=== PATIENT | female | born 1985 | race African-American/Black ===

== ENCOUNTER 2017-07-12 14:53 | Emergency (ER) | payer SELFPAY ==
[2017-07-12] MEDS ORDERED: Labetalol HCl 100 MG/20 ML VIAL ONE (15:03)
[2017-07-12] MEDS ORDERED: hydrALAZINE 20 MG/ML VIAL ONE (15:56)
[2017-07-12 15:57] LABS: #Lymphocytes 1.3 thou/uL (1.20-3.40); #Monocytes 0.6 thou/uL (0.11-0.59); #Neutrophils 7.3 thou/uL (1.40-6.50); %Basophils 0.5 % (0.0-1.0); %Eosinophils 0.3 % (0.0-10.0); %Lymphocytes 13.8 % (21.0-51.0); %Neutrophils 79.5 % (42.0-75.0); Hemoglobin 13.8 g/dL (12.0-16.0); Mean Corpuscular HGB CONC 34.3 g/dL (32.0-36.0); Mean Corpuscular Hemoglobin 30.2 pg (27.0-31.0); Mean Platelet Volume 6.9 fL (7.4-10.4); Platelet Count 300 thou/uL (130-400); RBC Distribution Width 12.3 % (11.5-14.5); Red Blood Cell (RBC) Count 4.56 mill/uL (4.20-5.40); White Blood Cell (WBC) Count 9.2 thou/uL (4.8-10.8)
[2017-07-12 16:05] LABS: Prothrombin Time 13.2 SEC (12.0-14.7)
[2017-07-12] MEDS ORDERED: Morphine 10 MG/ML VIAL ONE (16:11)
[2017-07-12 16:20] LABS: ALT (SGPT) 21 U/L (8-55); AST (SGOT) 19 U/L (5-34); Albumin 4.4 g/dL (3.5-5.0); Alkaline Phosphatase 97 U/L (40-150); Anion Gap 13 mmol/L (10-20); BUN (Urea Nitrogen) 13 mg/dL (7.0-18.7); Bilirubin, Total 0.3 mg/dL (0.2-1.2); Calc. Creatinine Clearance 0 mL/min (70-130); Calcium 9.2 mg/dL (7.8-10.44); Carbon Dioxide 21 mmol/L (22-29); Chloride 110 mmol/L (98-107); Estimated GFR-MDRD Greater than 90; Glucose 107 mg/dL (70-105); Potassium 3.5 mmol/L (3.5-5.1); Protein, Total 7.4 g/dL (6.0-8.3); Sodium 140 mmol/L (136-145)
== END 2017-07-12 17:12 | disposition home or self-care (01) ==
LOC: ERS 14:53
DX: K91.840 Postprocedural hemorrhage of a digestive system organ or structure following a digestive system procedure (principal); I10 Essential (primary) hypertension; Z71.6 Tobacco abuse counseling
CPT/HCPCS: 36415; 80053; 85025; 85610; 85730; 96374; 96375; 99406; J0360; J2270

== ENCOUNTER 2017-09-07 05:51 | Emergency (ER) | payer SELFPAY ==
[2017-09-07 06:52] LABS: #Basophils 0.1 thou/uL (0.0-0.2); #Eosinphils 0.2 thou/uL (0.0-0.7); #Lymphocytes 3.7 thou/uL (1.20-3.40); #Monocytes 0.5 thou/uL (0.11-0.59); #Neutrophils 3.1 thou/uL (1.40-6.50); %Basophils 0.7 % (0.0-1.0); %Eosinophils 2.3 % (0.0-10.0); %Lymphocytes 49.1 % (21.0-51.0); %Neutrophils 40.9 % (42.0-75.0); Hemoglobin 12.8 g/dL (12.0-16.0); Mean Corpuscular Hemoglobin 29.9 pg (27.0-31.0); Mean Corpuscular Volume 87.8 fL (78.0-98.0); Mean Platelet Volume 7.3 fL (7.4-10.4); Platelet Count 308 thou/uL (130-400); Red Blood Cell (RBC) Count 4.28 mill/uL (4.20-5.40); White Blood Cell (WBC) Count 7.5 thou/uL (4.8-10.8)
[2017-09-07 07:14] LABS: ALT (SGPT) 18 U/L (8-55); AST (SGOT) 17 U/L (5-34); Albumin 4.8 g/dL (3.5-5.0); Alkaline Phosphatase 123 U/L (40-150); Anion Gap 12 mmol/L (10-20); BUN (Urea Nitrogen) 13 mg/dL (7.0-18.7); Bilirubin, Total 0.3 mg/dL (0.2-1.2); Calc. Creatinine Clearance 0 mL/min (70-130); Calcium 9.8 mg/dL (7.8-10.44); Carbon Dioxide 26 mmol/L (22-29); Chloride 108 mmol/L (98-107); Estimated GFR-MDRD 88; Globulin 3.3 g/dL (2.4-3.5); Glucose 93 mg/dL (70-105); Potassium 3.6 mmol/L (3.5-5.1); Protein, Total 8.1 g/dL (6.0-8.3); Sodium 142 mmol/L (136-145)
[2017-09-07 07:22] LABS: Pregnancy Test - Urine (BHCG) Negative (Negative)
[2017-09-07 07:24] LABS: Pregu Control Background? CLEAR/WHITE (CLR/WHITE); Pregu Control Bar Appear? YES (CONTROL BAR); Specific Gravity 1.026 (1.002-1.036)
[2017-09-07] MEDS ORDERED: diphenhydrAMINE 50 MG/ML VIAL ONE (07:37)
[2017-09-07] MEDS ORDERED: Metoclopramide HCl 10 MG/2 ML VIAL ONE (07:37)
[2017-09-07] MEDS ORDERED: Acetaminophen 500 MG TAB ONE (07:37)
--- NOTE | 2017-09-07 09:04 | CT ---
FINAL REPORT BRAIN CT WITHOUT IV CONTRAST: HISTORY: A 32-year-old female with a history of headache which began at 2:00 a.m., the worst headache she has ever had. Tingling in the right arm. History of migraines. COMPARISON: 10/02/16. FINDINGS: No focal mass or midline shift. No intra- or extraaxial hemorrhage. Sinuses and mastoids are clear. IMPRESSION: No acute intracranial process. No mass or bleed. POS: OFF
[2017-09-07] MEDS ORDERED: Ondansetron ODT 4 MG TAB ONE (09:38)
== END 2017-09-07 09:54 | disposition home or self-care (01) ==
LOC: ERS 05:51
DX: G43.909 Migraine, unspecified, not intractable, without status migrainosus (principal); F17.200 Nicotine dependence, unspecified, uncomplicated
CPT/HCPCS: 70450; 80053; 81025; 85025; 96361; 96374; 96375; J1200; J2765; Q0162

== ENCOUNTER 2018-01-07 20:27 | Observation (INO) | payer SELFPAY ==
[2018-01-07] MEDS ORDERED: Albuterol Sulfate 2.5 mg/3 ml Neb ONE ×2 (21:47→23:33)
--- NOTE | 2018-01-07 21:53 | RAD ---
FRONTAL RADIOGRAPH CHEST: 01/07/2018 HISTORY: Pleuritic chest pain and cough. COMPARISON: None. FINDINGS: The lungs are clear. The heart and mediastinal contour is unremarkable. IMPRESSION: No acute findings. POS: [facility]
[2018-01-07 21:57] LABS: Actual Bicarbonate (HCO3a) 23.4 mEq/L (22-28); Analyzer IN Cardio ER; Base Excess (BEa) 0.4 mEq/L (-2.0 to +3.0); CO2 Tension 32.4 mmHg (35.0-45.0); Calcium, Ionized 1.19 mmol/L (1.12-1.30); Carboxyhemoglobin (COHb) 0.3 gm% (0.0-3.0); Hemoglobin (Hb) 12.8 g/dL (12.0-16.0); O2 Tension (PaO2) 112.8 mmHg (80.0-100.0); Potassium - ABG Lab 3.33 mmol/L (3.70-5.30); pH, Arterial 7.48 (7.35-7.45)
[2018-01-07 21:59] LABS: Puncture Site RRA
[2018-01-07 21:59] LABS: #Basophils 0.1 thou/uL (0.0-0.2); #Eosinphils 0.2 thou/uL (0.0-0.7); #Lymphocytes 2.3 thou/uL (1.20-3.40); #Monocytes 0.6 thou/uL (0.11-0.59); #Neutrophils 4.3 thou/uL (1.40-6.50); %Basophils 0.8 % (0.0-1.0); %Eosinophils 3.2 % (0.0-10.0); %Lymphocytes 30.4 % (21.0-51.0); %Monocytes 7.9 % (0.0-10.0); %Neutrophils 57.8 % (42.0-75.0); Hemoglobin 12.7 g/dL (12.0-16.0); Mean Corpuscular HGB CONC 33.4 g/dL (32.0-36.0); Mean Corpuscular Volume 86.8 fL (78.0-98.0); Mean Platelet Volume 7.6 fL (7.4-10.4); Platelet Count 333 thou/uL (130-400); RBC Distribution Width 12.7 % (11.5-14.5); Red Blood Cell (RBC) Count 4.37 mill/uL (4.20-5.40); White Blood Cell (WBC) Count 7.5 thou/uL (4.8-10.8)
[2018-01-07 22:19] LABS: ALT (SGPT) 19 U/L (8-55); AST (SGOT) 20 U/L (5-34); Albumin 4.3 g/dL (3.5-5.0); Alkaline Phosphatase 104 U/L (40-150); Anion Gap 14 mmol/L (10-20); BUN (Urea Nitrogen) 13 mg/dL (7.0-18.7); Bilirubin, Total 0.3 mg/dL (0.2-1.2); Calc. Creatinine Clearance 0 mL/min (70-130); Calcium 9.7 mg/dL (7.8-10.44); Carbon Dioxide 23 mmol/L (22-29); Chloride 107 mmol/L (98-107); Estimated GFR-MDRD 88; Glucose 93 mg/dL (70-105); Lipase 43 U/L (8-78); Potassium 3.4 mmol/L (3.5-5.1); Protein, Total 7.3 g/dL (6.0-8.3); Sodium 141 mmol/L (136-145)
[2018-01-07 22:24] LABS: CKMB 1.3 ng/mL (0-6.6); Troponin I Less than 0.010 ng/mL (< 0.028)
[2018-01-07] MEDS ORDERED: Dexamethasone 4 mg/ml Vial ONE (22:27)
[2018-01-07] MEDS ORDERED: Magnesium 2 GM/50 ML BAG (IN WATER) ONE (22:30)
[2018-01-08] MEDS ORDERED: diphenhydrAMINE 25 MG CAP ONE ×2 (01:05→01:10)
[2018-01-08] MEDS ORDERED: Ibuprofen 800 MG TAB ONE (04:33)
[2018-01-08 07:54] VITALS: BP 130/83; TEMP 99.1
[2018-01-08 12:10] VITALS: BMI 38.6
--- NOTE | 2018-01-08 12:57 | SS ---
PRIMARY CARE PROVIDER: Dr. Nicholas Godinez CHIEF COMPLAINT: Cough, shortness of breath. HISTORY OF PRESENT ILLNESS: This is a 32-year-old -[place] female who presented complaining of 2-3 day history of increasing shortness of breath, cough, and chest pain. The patient was evaluat ed in the emergency room including chest imaging showing no acute infiltrate. The patient was treate d for questionable asthma exacerbation/bronchitis with multiple medications including bronchodilator therapy with DuoNebs, intravenous normal saline, Benadryl, magnesium sulfate, albuterol sulfate, Leva davina and Decadron. The patient clinically stabilized with medical management in the emergency room a s well as pulmonary supportive care. The patient denied any documented fever at home or family membe rs with similar symptoms. The patient states she took [id number] cold medicine without specifi c relief. The patient denied receiving an influenza vaccination this season. The patient denies any prior history of pneumonia, but does admit to smoking up to a pack of cigarettes daily. The patient denied any travel history or recent exposure to chemicals. PAST MEDICAL HISTORY: 1. Tobacco use. 2. Elevated blood pressure. PAST SURGICAL HISTORY: Status post bilateral tubal ligation. CURRENT MEDICATIONS: Reviewed and negative. ALLERGIES: No known drug allergies. FAMILY HISTORY: No inheritable diseases per patient report. SOCIAL HISTORY: Patient is , accompanied by her in the hospital. Smokes up to a pack of cigarettes daily. Alcohol use socially. No illicit drug use. REVIEW OF SYSTEMS: The following complete review of systems was negative, unless otherwise mentioned in the HPI or below: Constitutional: Weight loss or gain, ability to conduct usual activities. Skin: Rash, itching. Eyes: Double vision, pain. ENT/Mouth: Nose bleeding, neck stiffness, pain, tenderness. Cardiovascular: Palpitations, dyspnea on exertion, orthopnea. Respiratory: Shortness of breath, wheezing, cough, hemoptysis, fever or night sweats. Gastrointestinal: Poor appetite, abdominal pain, heartburn, nausea, vomiting, constipation, or diarr hea. Genitourinary: Urgency, frequency, dysuria, nocturia. Musculoskeletal: Pain, swelling. Neurologic/Psychiatric: Anxiety, depression. Allergy/Immunologic: Skin rash, bleeding tendency. Otherwise negative except as stated per HPI. PHYSICAL EXAMINATION: VITAL SIGNS: Currently blood pressure 160/85, pulse 104, respiratory rate 17, temperature 99 degrees Fahrenheit, O2 saturation 97% on room air. GENERAL APPEARANCE: This is a 32-year-old -[place] female, alert and oriented x3, pleasant, conversant, in no acute distress. HEENT: Pupils are equal, round, and reactive to light and accommodation. Extraocular muscles are in tact. No scleral icterus, no conjunctival injection. Nares patent. OP is clear. Teeth in fair rep air. NECK: Supple, no cervical adenopathy, no thyromegaly, no carotid bruits, no JVD appreciated. Cervic al spine with full active and passive range of motion. No meningeal signs appreciated. CHEST: Diminished breath sounds in the bases bilaterally. No expiratory wheeze appreciated. CARDIOVASCULAR: S1 and S2 without murmur, rub or gallop. Tachycardia noted. ABDOMEN: Rounded, soft, nontender, nondistended. Bowel sounds are positive in all four quadrants. There is no hepatosplenomegaly, no abdominal bruits, no rebound or guarding appreciated. EXTREMITIES: Warm and dry with fair turgor. No clubbing, cyanosis or asymmetric edema appreciated. Pulses are palpable distally at the dorsalis pedis, posterior tibial and popliteal arteries bilatera lly. Capillary refill is less than 2 seconds. NEUROLOGIC: Cranial nerves II-XII are grossly intact. No focal or lateralizing signs appreciated. PERTINENT LABORATORY DATA AND IMAGING DATA: Complete metabolic profile within normal limits. Lactic acid level 1. CBC within normal limits. ABG dated 01/07/2018 at 21:49 showed a pH 7.48, pCO2 of 32 , pO2 of 113, bicarbonate 23, O2 saturation 98%. Portable chest x-ray dated 01/07/2018 showed no acu te cardiopulmonary process. Telemetry monitoring shows sinus tachycardia with heart rates in the low 100s. ASSESSMENT AND PLAN: 1. Acute bronchitis. Supportive management. We will continue outpatient management with prednisone 10 mg 2 tabs p.o. b.i.d. x3 days, followed by 3 tabs p.o. daily x 3 days, followed by 2 tabs p.o. da mora x 3 days, followed by 1 tab p.o. daily x3 days 2. Proventil HFA 2 puffs inhaled q.4-6 hours p.r.n. 3. Tobacco cessation reeducation. 4. Acute dyspnea secondary to #1 improved with pulmonary supportive management. See #1 above. 5. Sinus tachycardia. Suspect secondarily to multiple medications given in the emergency room to in clude bronchodilator therapy x3 treatments. 6. Hypertension. Suspect secondarily to #2. Recommend outpatient followup and serial monitoring. 7. Tobacco use. Smoking cessation resources given. 8. Code status is FULL. Surrogate medical decision maker is patient's spouse. DISPOSITION: Discharged home on 01/08/2018 with follow up with primary care provider, Dr. Nicholas hitchcock within 7 days.
--- NOTE | 2018-01-12 20:20 | EKG ---
Test Reason : CP Blood Pressure : / mmHG Vent. Rate : 106 BPM Atrial Rate : 106 BPM P-R Int : 150 ms QRS Dur : 078 ms QT Int : 352 ms P-R-T Axes : 030 030 -08 degrees QTc Int : 467 ms Sinus tachycardia Septal infarct , age undetermined Abnormal ECG Confirmed by JAIDEN SCHWARTZ, VAN ([id number]), legal editor ZOFIA CHAKRABORTY ([id number]) on 01/12/2018 8:20:01 PM Referred By: Confirmed By:VAN HWANG MD
== END 2018-01-08 13:04 | disposition home or self-care (01) ==
LOC: ERS 20:27 → ERHOLD 01-08 01:54 → 2SW 01-08 11:30
PROVIDERS: ADMIT Hospitalist; ATTEND Hospitalist
DX: J20.9 Acute bronchitis, unspecified (principal); I10 Essential (primary) hypertension; F17.210 Nicotine dependence, cigarettes, uncomplicated; Z98.51 Tubal ligation status; Z79.82 Long term (current) use of aspirin; Z79.01 Long term (current) use of anticoagulants; Z79.899 Other long term (current) drug therapy; Z79.52 Long term (current) use of systemic steroids
CPT/HCPCS: 36415; 71045; 80053; 82553; 82805; 83605; 83690; 84484; 85025; 87040; 87804; 90471; 90686; 93005; 94644; 96361; 96365; 96366; 96375; G0008; G0378; J1100; J1956; J7611; J7620

== ENCOUNTER 2018-12-31 10:17 | Emergency (ER) | payer OTHER, SELFPAY | END 2018-12-31 11:42 | disposition home or self-care (01) | LOC: ERS 10:17 | DX: M62.838 Other muscle spasm (principal); F17.210 Nicotine dependence, cigarettes, uncomplicated | CPT/HCPCS: 99283 ==

== ENCOUNTER 2020-06-15 04:17 | Emergency (ER) | payer OTHER, SELFPAY ==
[2020-06-15] MEDS ORDERED: Morphine 4 MG/ML VIAL ONE (04:32)
== END 2020-06-15 06:38 | disposition home or self-care (01) ==
LOC: ERS 04:17
DX: S83.92XA Sprain of unspecified site of left knee, initial encounter (principal); F17.210 Nicotine dependence, cigarettes, uncomplicated; W01.0XXA Fall on same level from slipping, tripping and stumbling without subsequent striking against object, initial encounter
CPT/HCPCS: 96372; J2270

== ENCOUNTER 2021-08-01 08:41 | Emergency (ER) | payer OTHER, SELFPAY ==
[2021-08-01] MEDS ORDERED: Acetaminophen 500 MG TAB ONE (09:41)
[2021-08-01] MEDS ORDERED: traMADol HCl 50 MG TAB ONE (09:41)
== END 2021-08-01 11:04 | disposition home or self-care (01) ==
LOC: ERS 08:41
DX: S82.832A Other fracture of upper and lower end of left fibula, initial encounter for closed fracture (principal); F17.210 Nicotine dependence, cigarettes, uncomplicated; W01.198A Fall on same level from slipping, tripping and stumbling with subsequent striking against other object, initial encounter
CPT/HCPCS: 29515

== ENCOUNTER 2021-08-10 09:56 | Outpatient (CLI) | payer SELFPAY | END 2021-08-10 09:57 | disposition home or self-care (01) | LOC: LABBT 09:56 | PROVIDERS: ATTEND Orthopaedic Surgery | DX: S82.62XA Displaced fracture of lateral malleolus of left fibula, initial encounter for closed fracture (principal); Z20.822 Contact with and (suspected) exposure to COVID-19 | CPT/HCPCS: 87811 ==

== ENCOUNTER → 2021-08-11 | Day surgery (SDC) | payer OTHER ==
[2021-08-10 10:43] VITALS: BMI 36.0
== END | disposition home or self-care (01) ==
LOC: SDC 10:20
PROVIDERS: ATTEND Orthopaedic Surgery
DX: S82.62XA Displaced fracture of lateral malleolus of left fibula, initial encounter for closed fracture (principal); Z53.9 Procedure and treatment not carried out, unspecified reason; X58.XXXA Exposure to other specified factors, initial encounter

== ENCOUNTER 2021-08-16 11:41 | Outpatient (CLI) | payer SELFPAY | END 2021-08-16 11:42 | disposition home or self-care (01) | LOC: LABBT 11:41 | PROVIDERS: ATTEND Orthopaedic Surgery | DX: Z20.822 Contact with and (suspected) exposure to COVID-19 (principal) | CPT/HCPCS: 87811 ==

== ENCOUNTER 2021-08-17 11:56 | Day surgery (SDC) | payer SELFPAY ==
[2021-08-16 12:31] VITALS: BMI 37.8
[2021-08-17] MEDS ORDERED: Midazolam HCl 2 mg/2 ml Vial ONE (13:11)
[2021-08-17] MEDS ORDERED: fentaNYL Citrate/PF 100 MCG/2 ML SYRINGE ONE ×2 (13:32→15:23)
[2021-08-17] MEDS ORDERED: Bupivacaine HCl 0.5%/Epinephrine 1:200,000/PF 30 ml Vial ONE (13:39)
[2021-08-17] MEDS ORDERED: Ondansetron PF 4 MG/2 ML Vial ONE (13:39)
[2021-08-17] MEDS ORDERED: Dexamethasone 20 MG/5 ML VIAL ONE (13:39)
[2021-08-17] MEDS ORDERED: PROPOFOL 200 MG/20 ML VIAL ONE (13:39)
[2021-08-17] MEDS ORDERED: Lidocaine 1% PF 5 ML VIAL ONE (13:39)
[2021-08-17] MEDS ORDERED: CEFAZOLIN 2 GM VIAL ONE (13:41)
[2021-08-17] MEDS ORDERED: Sodium Chloride 0.9% 100 ML ONE (13:41)
== END 2021-08-17 17:24 | disposition home or self-care (01) ==
LOC: SDC 11:56
PROVIDERS: ATTEND Orthopaedic Surgery
PROC: 0QSK04Z Reposition Left Fibula with Internal Fixation Device, Open Approach (ICD-10-PCS; principal; 2021-08-17)
DX: S82.62XA Displaced fracture of lateral malleolus of left fibula, initial encounter for closed fracture (principal); J45.909 Unspecified asthma, uncomplicated; W01.0XXA Fall on same level from slipping, tripping and stumbling without subsequent striking against object, initial encounter
CPT/HCPCS: 76000; C1713; J0690; J1100; J2250; J2405; J2704; J3490